=== PATIENT | female | born 1965 | race Caucasian/White ===

== ENCOUNTER 2016-12-20 07:42 | Day surgery (SDC) | payer OTHER ==
[~2016-12-20 07:42] MED LIST: C 250 PO; TOPAMAX25 MG PO; VITAMIN B-12500 MC1 SL; VITAMIN D31000 UNI4 PO
[2016-12-20 10:11] VITALS: BP 107/65
== END 2016-12-20 10:00 | disposition home or self-care (01) | DRG 392 ==
LOC: ENDO 07:42
PROVIDERS: ATTEND Internal Medicine Gastroenterology
PROC: 0DBN8ZX Excision of Sigmoid Colon, Via Natural or Artificial Opening Endoscopic, Diagnostic (ICD-10-PCS; principal; 2016-12-20)
DX: R10.32 Left lower quadrant pain (principal); D12.5 Benign neoplasm of sigmoid colon; K64.4 Residual hemorrhoidal skin tags; K64.8 Other hemorrhoids; Z80.0 Family history of malignant neoplasm of digestive organs